=== PATIENT | female | born 1955 | race Caucasian/White ===

== ENCOUNTER 2017-08-19 18:15 | Emergency (ER) | payer MEDICARE ==
[~2017-08-19] VITALS: Ht 154.9 cm; Wt 65.8 kg
[2017-08-19 19:34] LABS: BASOPHILS ABSOLUTE AUTO 0.06 K/mm3 (0.00-0.23); BASOPHILS PERCENT AUTO 1 % (0-2); EOSINOPHILS ABSOLUTE AUTO 0.03 K/mm3 (0.00-0.68); EOSINOPHILS PERCENT AUTO 0 % (0-6); Hematocrit 35.4 % (33.0-51.0); Hemoglobin 12.6 g/dL (11.5-16.0); IMMATURE GRAN ABSOLUTE AUTO 0.01 K/mm3 (0.00-0.10); IMMATURE GRAN PERCENT AUTO 0 % (0-1); LYMPHOCYTES ABSOLUTE AUTO 2.69 K/mm3 (0.84-5.20); LYMPHOCYTES PERCENT AUTO 32 % (21-46); MONOCYTES ABSOLUTE AUTO 0.53 K/mm3 (0.16-1.47); MONOCYTES PERCENT AUTO 6 % (4-13); Mean Corpuscular HGB 39.7 pg (26.0-34.0); Mean Corpuscular HGB Conc 35.6 g/dL (31.5-36.5); Mean Corpuscular Volume 112 fL (80-100); Mean Platelet Volume 10.3 fL (9.1-12.4); NEUTROPHILS ABSOLUTE AUTO 5.13 K/mm3 (1.96-9.15); NEUTROPHILS PERCENT AUTO 61 % (41-73); Platelet Count 236 K/mm3 (150-400); RDW Coefficient Variation 16.5 % (11.7-14.2); RDW Standard Deviation 68.5 fL (35.1-46.3); Red Blood Cell Count 3.17 M/mm3 (3.80-5.20); White Blood Cell Count 8.45 K/mm3 (4.00-11.30)
[2017-08-19 20:00] LABS: Alanine Aminotransfer (ALT/SGP 53 U/L (12-78); Albumin/Globulin Ratio 0.4 (0.8-1.8); Alk Phos 291 U/L (50-136); Anion Gap 11 mmol/L (6-16); Aspartate Aminotrans (AST/SGOT 170 U/L (12-37); Bilirubin, Total 1.1 mg/dL (0.1-1.0); Blood Urea Nitrogen 3 mg/dL (8-24); Bun/Creatinine Ratio 3.4 (12.0-20.0); CO2, Blood 28 mmol/L (21-32); Calcium, Blood 7.7 mg/dL (8.5-10.1); Chloride, Blood 98 mmol/L (98-108); Creatinine, Blood 0.89 mg/dL (0.40-1.00); Globulin, Blood 5.4 g/dL (2.2-4.0); Glomerular Filtration Rate >60 (60-); Glucose, Blood 92 mg/dL (70-99); Potassium, Blood 3.5 mmol/L (3.5-5.5); Sodium, Blood 137 mmol/L (136-145); Total Protein, Blood 7.4 g/dL (6.4-8.2)
[2017-08-19 20:13] LABS: Troponin I <0.015 ng/mL (0.000-0.040)
[2017-08-19] MEDS ORDERED: ALBU90OI INH (21:20)
[2017-08-19] MEDS ORDERED: MAGOXI400 PO (21:20)
[2017-08-19] MEDS ORDERED: POTCHL20ER PO (21:20)
[2017-08-19] MEDS ORDERED: OXYC10TA19 PO (21:21)
[2017-08-19] MEDS ORDERED: AMLO10 PO (21:21)
[2017-08-19] MEDS ORDERED: OXYC15ER PO (21:21)
[2017-08-19] MEDS ORDERED: PARO20 PO (21:22)
[2017-08-19] MEDS ORDERED: TIZANIDINE HCL2 MG PO (21:22)
[2017-08-19] MEDS ORDERED: LOSA50 PO (21:22)
[2017-08-19] MEDS ORDERED: HYDCHL12.5 PO (21:22)
== END 2017-08-19 21:45 | disposition home or self-care (01) ==
LOC: ER 18:15
PROVIDERS: Nurse Practitioner Family
DX: G89.29 Other chronic pain (principal); Z87.891 Personal history of nicotine dependence
CPT/HCPCS: 71046; 80053; 83690; 83880; 84484; 85025; 93005; 93010; 99284

== ENCOUNTER → 2018-01-06 | Outpatient (CLI) | payer MEDICARE ==
[~2018-01-06] MED LIST: ALBU90OI INH; AMLO10 PO; HYDCHL12.5 PO; LOSA50 PO; MAGOXI400 PO; OXYC10TA19 PO; OXYC15ER PO; PARO20 PO; POTCHL20ER PO; TIZANIDINE HCL2 MG PO
== END ==
LOC: LAB EV 18:29 → LAB SHORT 18:29
DX: N39.0 Urinary tract infection, site not specified (principal)
CPT/HCPCS: 87086

== ENCOUNTER 2021-01-06 21:23 | Inpatient (IN) | payer MEDICARE ==
[~2021-01-06] VITALS: Ht 167.6 cm; Wt 51.3 kg
[2021-01-06 22:31] LABS: BASOPHILS ABSOLUTE AUTO 0.05 K/mm3 (0.00-0.23); BASOPHILS PERCENT AUTO 1 % (0-2); EOSINOPHILS ABSOLUTE AUTO 0.13 K/mm3 (0.00-0.68); EOSINOPHILS PERCENT AUTO 1 % (0-6); Hematocrit 41.9 % (33.0-51.0); Hemoglobin 14.9 g/dL (11.5-16.0); IMMATURE GRAN ABSOLUTE AUTO 0.05 K/mm3 (0.00-0.10); IMMATURE GRAN PERCENT AUTO 1 % (0-1); LYMPHOCYTES ABSOLUTE AUTO 3.02 K/mm3 (0.84-5.20); LYMPHOCYTES PERCENT AUTO 28 % (21-46); MONOCYTES ABSOLUTE AUTO 0.85 K/mm3 (0.16-1.47); MONOCYTES PERCENT AUTO 8 % (4-13); Mean Corpuscular HGB 35.2 pg (26.0-34.0); Mean Corpuscular HGB Conc 35.6 g/dL (31.5-36.5); Mean Corpuscular Volume 99 fL (80-100); Mean Platelet Volume 8.3 fL (9.1-12.4); NEUTROPHILS ABSOLUTE AUTO 6.54 K/mm3 (1.96-9.15); NEUTROPHILS PERCENT AUTO 61 % (41-73); Platelet Count 266 K/mm3 (150-400); RDW Coefficient Variation 13.1 % (11.7-14.2); RDW Standard Deviation 48.1 fL (35.1-46.3); Red Blood Cell Count 4.23 M/mm3 (3.80-5.20); White Blood Cell Count 10.64 K/mm3 (4.00-11.30)
[2021-01-06 22:32] LABS: Base Excess Venous 0.3 mmol/L; PCO2 Venous 46.5 mmHg (38-42); PO2 Venous 53.7 mmHg (38-42); pH Blood Venous 7.35 (7.34-7.37)
[2021-01-06 22:50] LABS: Alanine Aminotransfer (ALT/SGP 15 U/L (12-78); Albumin, Blood 3.7 g/dL (3.4-5.0); Albumin/Globulin Ratio 0.8 (0.8-1.8); Alk Phos 59 U/L (50-136); Anion Gap 12 mmol/L (6-16); Aspartate Aminotrans (AST/SGOT 17 U/L (12-37); Bilirubin, Total 0.5 mg/dL (0.1-1.0); Blood Urea Nitrogen 8 mg/dL (8-24); Bun/Creatinine Ratio 17.4 (12.0-20.0); CO2, Blood 21 mmol/L (21-32); Calcium, Blood 9.7 mg/dL (8.5-10.1); Chloride, Blood 90 mmol/L (98-108); Creatinine, Blood 0.46 mg/dL (0.40-1.00); Globulin, Blood 4.8 g/dL (2.2-4.0); Glomerular Filtration Rate >60 (60-); Glucose, Blood 110 mg/dL (70-99); Magnesium, Blood 1.5 mg/dL (1.6-2.4); Potassium, Blood 3.4 mmol/L (3.5-5.5); Sodium, Blood 123 mmol/L (136-145); Total Protein, Blood 8.5 g/dL (6.4-8.2); Troponin I <0.015 ng/mL (0.000-0.040)
[2021-01-06 23:23] LABS: Influenza A, PCR NEGATIVE (NEGATIVE); Influenza B, PCR NEGATIVE (NEGATIVE); Resp Syncytial Virus, PCR NEGATIVE (NEGATIVE); SARS-Cov-2 (COVID-19) PCR, MMC NEGATIVE (NEGATIVE)
[2021-01-07 02:15] LABS: Prolactin 47.7 ng/mL (2.74-19.64)
[2021-01-07 02:17] LABS: Anion Gap 5 mmol/L (6-16); Blood Urea Nitrogen 6 mg/dL (8-24); Bun/Creatinine Ratio 14.2 (12.0-20.0); CO2, Blood 28 mmol/L (21-32); Calcium, Blood 9.2 mg/dL (8.5-10.1); Chloride, Blood 95 mmol/L (98-108); Creatinine, Blood 0.42 mg/dL (0.40-1.00); Glomerular Filtration Rate >60 (60-); Glucose, Blood 109 mg/dL (70-99); Potassium, Blood 3.6 mmol/L (3.5-5.5); Sodium, Blood 128 mmol/L (136-145)
--- NOTE | 2021-01-07 05:32 | NUR ---
ADMISSION: RECEIVED PT FROM ER VIA STRETCHER ORIENTED X2. PT DENIES PAIN. RESP UNLABORED. NO SEIZURE ACTIVITY. PT IS FORGETFUL. ORIENTED PT TO SURROUNDINGS. CALL LIGHT WITHIN REACH. SEIZURE PRECAUTIONS INITIATED. SR ON TELE MONITOR. INCONTINENT OF URINE. ATTENDS IN PLACE
[2021-01-07 06:55] LABS: Anion Gap 8 mmol/L (6-16); Blood Urea Nitrogen 5 mg/dL (8-24); Bun/Creatinine Ratio 14.6 (12.0-20.0); CO2, Blood 23 mmol/L (21-32); Calcium, Blood 9.3 mg/dL (8.5-10.1); Chloride, Blood 98 mmol/L (98-108); Creatinine, Blood 0.34 mg/dL (0.40-1.00); Glomerular Filtration Rate >60 (60-); Glucose, Blood 102 mg/dL (70-99); Magnesium, Blood 1.9 mg/dL (1.6-2.4); Potassium, Blood 4.2 mmol/L (3.5-5.5); Sodium, Blood 129 mmol/L (136-145)
[2021-01-07 07:12] LABS: Base Excess Venous 0.4 mmol/L; Bicarbonate Venous 25.3 mmol/L (24.0-30.0); PCO2 Venous 33 mmHg (38-42); PO2 Venous 191 mmHg (38-42); pH Blood Venous 7.47 (7.34-7.37)
[2021-01-07 07:25] LABS: BASOPHILS ABSOLUTE AUTO 0.04 K/mm3 (0.00-0.23); BASOPHILS PERCENT AUTO 1 % (0-2); EOSINOPHILS ABSOLUTE AUTO 0.02 K/mm3 (0.00-0.68); EOSINOPHILS PERCENT AUTO 0 % (0-6); Hematocrit 41.5 % (33.0-51.0); Hemoglobin 15.4 g/dL (11.5-16.0); IMMATURE GRAN ABSOLUTE AUTO 0.02 K/mm3 (0.00-0.10); IMMATURE GRAN PERCENT AUTO 0 % (0-1); LYMPHOCYTES ABSOLUTE AUTO 1.61 K/mm3 (0.84-5.20); LYMPHOCYTES PERCENT AUTO 18 % (21-46); MONOCYTES ABSOLUTE AUTO 0.83 K/mm3 (0.16-1.47); MONOCYTES PERCENT AUTO 10 % (4-13); Mean Corpuscular HGB 35.4 pg (26.0-34.0); Mean Corpuscular HGB Conc 37.1 g/dL (31.5-36.5); Mean Corpuscular Volume 95 fL (80-100); Mean Platelet Volume 8.4 fL (9.1-12.4); NEUTROPHILS ABSOLUTE AUTO 6.21 K/mm3 (1.96-9.15); NEUTROPHILS PERCENT AUTO 71 % (41-73); Platelet Count 252 K/mm3 (150-400); RDW Coefficient Variation 13.1 % (11.7-14.2); RDW Standard Deviation 46.8 fL (35.1-46.3); Red Blood Cell Count 4.35 M/mm3 (3.80-5.20); White Blood Cell Count 8.73 K/mm3 (4.00-11.30)
[2021-01-07 10:16] LABS: Anion Gap 7 mmol/L (6-16); Blood Urea Nitrogen 4 mg/dL (8-24); Bun/Creatinine Ratio 9.7 (12.0-20.0); CO2, Blood 24 mmol/L (21-32); Chloride, Blood 101 mmol/L (98-108); Creatinine, Blood 0.41 mg/dL (0.40-1.00); Glomerular Filtration Rate >60 (60-); Glucose, Blood 93 mg/dL (70-99); Sodium, Blood 132 mmol/L (136-145)
[2021-01-07 12:14] LABS: U Amphetamine Screen Not Detected; U Barbituate Screen Not Detected; U Benzodiazapine Screen Not Detected; U Buprenorphine Screen Not Detected; U Cannabinoids Screen Not Detected; U Cocaine Screen Not Detected; U Methadone Screen Not Detected; U Methamphetamine Screen Not Detected; U Opiates Screen Not Detected; U Oxycodone Screen DETECTED; U Phencyclidine Screen Not Detected; U Propoxyphene Screen Not Detected
[2021-01-07 15:22] LABS: Albumin, Blood 3.2 g/dL (3.4-5.0); Anion Gap 5 mmol/L (6-16); Blood Urea Nitrogen 4 mg/dL (8-24); Bun/Creatinine Ratio 8.3 (12.0-20.0); CO2, Blood 24 mmol/L (21-32); Calcium, Blood 8.8 mg/dL (8.5-10.1); Chloride, Blood 102 mmol/L (98-108); Creatinine, Blood 0.48 mg/dL (0.40-1.00); Glomerular Filtration Rate >60 (60-); Glucose, Blood 95 mg/dL (70-99); Phosphorus, Blood 2.3 mg/dL (2.5-4.9); Potassium, Blood 3.6 mmol/L (3.5-5.5); Sodium, Blood 131 mmol/L (136-145)
--- NOTE | 2021-01-07 18:29 | NUR ---
PT ALERT AND ORIENTED TO SELF MOST PART OF SHIFT,ROLLED EYES MOST OF SHIFT BUT MORE ALERT X 3 THIS EVENING,VITALS STABLE, MEDICATED FOR PAIN NEEDED.MRI ORDERED BUT UNABLE TO PERFORM TEST DUE TO ANEURYSM CLIPS PLACED 2004,NURSE'S COMPANION REQUESTING DETALIS OF CLIPS IN ORDER TO DETERMINE IF MRI CAN BE DONE.[facility] CONTACTED [facility] IN [place] ,REQUESTING TO CALL DURING THE DAY WHEN MEDICAL RECORDS IS OPEN.SON VISITED AND PROVIDED MOST OF INFO NEEDED.PT IS INCONTINENT AND CHANGED NEEDED.CALL LIGHT IN PLACED.APPETITE POOR.
--- NOTE | 2021-01-08 02:47 | NUR ---
DRIP PUMPER SUMMARY WAS LETHARGIC AT SHIFT COMMENCE BUT ALERT AND ORIENTED TO QUESTIONS ASKED. COOPERATIVE WITH ASSESSMENTS AND MEDS BUT WANTED STAFF TO LEAVE ROOM SO SHE COULD SLEEP. IVF AND ANTIBIOTICS INFUSING PER MAR. HAS BEEN RESTING QUIETLY WITH FEW INTERRUPTIONS SINCE. CALL LIGHT IN REACH. MED TELE SINUS IN THE 70'S. NO NOTED SEIZURE ACTIVITY OF THIS WRITING. WILL CONTINUE TO MONITOR.
[2021-01-08 05:05] LABS: Albumin, Blood 3.3 g/dL (3.4-5.0); Anion Gap 5 mmol/L (6-16); Blood Urea Nitrogen 3 mg/dL (8-24); Bun/Creatinine Ratio 7.5 (12.0-20.0); CO2, Blood 26 mmol/L (21-32); Calcium, Blood 8.6 mg/dL (8.5-10.1); Chloride, Blood 103 mmol/L (98-108); Glomerular Filtration Rate >60 (60-); Glucose, Blood 81 mg/dL (70-99); Magnesium, Blood 1.6 mg/dL (1.6-2.4); Potassium, Blood 3.4 mmol/L (3.5-5.5); Sodium, Blood 134 mmol/L (136-145)
--- NOTE | 2021-01-08 11:07 | NUR ---
PT AAOX3, NO ACUTE DISTRESS, NO SEIZURE ACTIVITY NOTED, MEDICATED FOR PAIN REQUESTED WITH GOOD EFFECT.PT HAD BREAKFAST, ADEQUATE APPETITE AND ABLE TO SIT AT SIDE OF BED TO EAT. SEEN BY MD AND PT WORKING ON D/C PLANNING. ABLE TO AMBULATE WITH PT TO WITH MINIMAL ASSIST STATED BY PT.PRESENTLY SITED IN CHAIR AT BEDSIDE.SAFETY PRECAUTIONS MAINTAINED,CALL LIGHT WITHIN REACH.
[2021-01-08] MEDS ORDERED: NICODERM CQ1 EA11 TOP (13:51)
[2021-01-08] MEDS ORDERED: LEVE500 PO (13:52)
--- NOTE | 2021-01-08 16:02 | NUR ---
DISCHARGE DISCHARGE MEDICATIONS AND INSTRUCTIONS EXPLAIEND TO PATIENT AND PATIENT'S SON. THEY STATED UNDERSTANDING. [facility] TO CONTACT PATIENT TO SCHEDULE FOLLOW UP. IV REMOVED WITHOUT ISSUE. BELONGINGS WITH PATIENT. PATIENT TRANSFERED TO PRIVATE VEHICLE VIA WHEELCHAIR.
--- NOTE | 2021-01-08 16:10 | NUR ---
PT AAOX3, NO ACUTE DISTRESS NOTED, VITALS WNL,PT D/C'D HOME, IV D/C PRIOR TO, NO SEIZURE ACTIVITY NOTED,FAMILY ACCOMPANIED PT HOME.D/C TEACHING DONE ON NEW MEDS, AND SEIZURE PRECAUTIONS.
== END 2021-01-08 15:50 | disposition home or self-care (01) | DRG 101 ==
LOC: ER 21:23 → MEDS 21:24
PROVIDERS: Family Medicine; Student in an Organized Health Care Education/Training Program; ADMIT Family Medicine
DX: R56.9 Unspecified convulsions (principal); E87.1 Hypo-osmolality and hyponatremia; Z20.822 Contact with and (suspected) exposure to COVID-19; E87.6 Hypokalemia; E83.42 Hypomagnesemia; G89.29 Other chronic pain; J44.9 Chronic obstructive pulmonary disease, unspecified; Z28.21 Immunization not carried out because of patient refusal; I10 Essential (primary) hypertension; F32.A Depression, unspecified; Z87.891 Personal history of nicotine dependence; Z98.890 Other specified postprocedural states; Z79.899 Other long term (current) drug therapy
CPT/HCPCS: 0241U; 36415; 70450; 70496; 71045; 72125; 80048; 80053; 80069; 82803; 82947; 83605; 83735; 83930; 83935; 84146; 84300; 84484; 85025; 93005; 93010; 95819; 96365; 96367; 96372; 97161; 97530; 99285-25; A9270; G0378; J1650; J1953; J3475; J7030; J7120; Q9967

== ENCOUNTER 2022-06-21 12:55 | Day surgery (SDC) | payer OTHER ==
[~2022-06-21] VITALS: Ht 152.4 cm; Wt 58.9 kg
[~2022-06-21 12:55] MED LIST changes: +LEVE500 PO; +NICODERM CQ1 EA11 TOP
[2022-06-21] MEDS ORDERED: LOSA50 PO (13:55)
[2022-06-21] MEDS ORDERED: OXYC5 PO (13:57)
[2022-06-21] MEDS ORDERED: OXYB5 PO (13:59)
--- NOTE | 2022-06-21 14:14 | NUR ---
[facility] [facility]ER RN ELIZABET. PER PT SHE DOESN'T BELIE VE SHE HAS HAD A STROKE OR HEART ATTACK. AND SON FILLED OUT PTS PAPER WORK. PT JOSE HISTORIAN.
[2022-06-21 15:09] VITALS: BP 161/94
== END 2022-06-21 15:32 | disposition home or self-care (01) ==
LOC: ORSCSDS 12:55
PROVIDERS: Ophthalmology
PROC: 08DJ3ZZ Extraction of Right Lens, Percutaneous Approach (ICD-10-PCS; principal; 2022-06-21 14:00)
DX: H25.11 Age-related nuclear cataract, right eye (principal); I25.2 Old myocardial infarction; I10 Essential (primary) hypertension; J43.9 Emphysema, unspecified; R56.9 Unspecified convulsions; Z79.899 Other long term (current) drug therapy
CPT/HCPCS: J2001; J2250; J3010; J3301; J7040; V2632

== ENCOUNTER 2022-07-05 12:59 | Day surgery (SDC) | payer OTHER ==
[~2022-07-05] VITALS: Ht 149.9 cm; Wt 58.4 kg
[~2022-07-05 12:59] MED LIST changes: +OXYB5 PO; +OXYC5 PO
--- NOTE | 2022-07-05 13:46 | NUR ---
07/05/22 1346 Kate Moise AT 1337 [address] AT 1331
[2022-07-05 15:12] VITALS: BP 171/91
--- NOTE | 2022-07-05 16:45 | NUR ---
07/05/22 1645 [place] IV REMOVED. SITE WNL. PT INSTRUCTED TO MONITOR BLOOD PRESSURE AT HOME AND FOLLOW UP WITH PCP REGARDING HYPERTENSION.
== END 2022-07-05 15:39 | disposition home or self-care (01) ==
LOC: ORSCSDS 12:59
PROVIDERS: Ophthalmology
PROC: 08DK3ZZ Extraction of Left Lens, Percutaneous Approach (ICD-10-PCS; principal; 2022-07-05 14:00)
DX: H25.12 Age-related nuclear cataract, left eye (principal); Z96.1 Presence of intraocular lens; H50.22 Vertical strabismus, left eye; I10 Essential (primary) hypertension; I25.2 Old myocardial infarction; R56.9 Unspecified convulsions; Z86.73 Personal history of transient ischemic attack (TIA), and cerebral infarction without residual deficits; H40.9 Unspecified glaucoma; Z79.899 Other long term (current) drug therapy
CPT/HCPCS: J2250; J3010; J3301; J7040; V2632